=== PATIENT | female | born 1930 | race Caucasian/White ===

== ENCOUNTER 2016-09-11 15:19 | Emergency (ER) | payer MEDICARE ==
[~2016-09-11 15:19] MED LIST: AMITRIPTYLINE H50 M1 PO; AMOXICILLIN/CLA1 TA1 PO; CALCI-MIX500 M1 PO; CARDI-OMEGA1000 MG PO; CRANBERRY1 POW; GINKGO4 PO; NATURE'S BLEND400 IU PO; PHENERGAN 25 TA25 MG PO; PRILOSEC 20MG20 MG PO; PRINIVIL10 MG PO; PRINZIDE 25 MG-1 TAB PO; ZOFRAN ODT4 MG PO
[2016-09-11 15:21] VITALS: BP 120/88; PULSE 70; TEMP 97.1
== END 2016-09-11 15:27 | disposition home or self-care (01) ==
LOC: COL.ER 15:19
DX: Z48.02 Encounter for removal of sutures (principal)

== ENCOUNTER 2017-01-23 11:00 | Outpatient (RCR) | payer MEDICARE ==
[2017-01-18 07:50] VITALS: BP 139/56; PULSE 55; TEMP 97.1
[2017-01-19 01:16] LABS: HAPTOGLOBIN 2 mg/dL (36-195)
[2017-01-19 14:18] LABS: ALBUMIN FRACTION 4.1 g/dL (2.6-4.5); ALBUMIN PERCENTAGE 59.4 % (48.7-61.8); ALPHA 1 FRACTION 0.3 g/dL (0.3-0.5); ALPHA 1 PERCENTAGE 3.6 % (3.4-8.3); ALPHA 2 FRACTION 0.7 g/dL (0.6-1.2); ALPHA 2 PERCENTAGE 9.4 % (8.4-17.5); BETA 1 FRACTION 0.4 g/dL (0.4-0.6); BETA 1 PERCENTAGE 5.7 % (5.4-8.9); BETA 2 FRACTION 0.3 g/dL (0.2-0.5); BETA 2 PERCENTAGE 4.5 % (3.8-7.7); GAMMA FRACTION 1.2 g/dL (0.4-1.7); GAMMA PERCENTAGE 17.4 % (8.1-23.0); SERUM PROTEIN TOTAL 6.9 g/dL (6.0-7.6)
[2017-01-20 15:51] LABS: KAPPA FREE LIGHT CHAIN-SERUM 20.4 mg/dL (()); KAPPA LAMBDA RATIO 5.44 (())
[2017-01-23] VITALS (8 sets, daily range): BP systolic 126–153; BP diastolic 60–71; PULSE 72–77; TEMP 97.1–98.4
== END 2017-01-23 18:41 | disposition home or self-care (01) ==
LOC: EUO 11:00
PROVIDERS: Family Medicine
DX: D72.829 Elevated white blood cell count, unspecified (principal)
CPT/HCPCS: J7050; P9040

== ENCOUNTER 2017-02-03 16:24 | Outpatient (RCR) | payer MEDICARE ==
[2017-02-03] VITALS (7 sets, daily range): BP systolic 121–165; BP diastolic 65–106; PULSE 73–80; TEMP 97.7–98.2
[2017-02-04 01:30] VITALS: BP 164/57; PULSE 59; TEMP 98.1
[2017-02-04 02:24] VITALS: BP 164/57; PULSE 59
[2017-02-04 02:55] VITALS: BP 176/67; PULSE 72; TEMP 97.9
== END 2017-02-04 08:45 | disposition home or self-care (01) ==
LOC: EUO 16:24 → MEDICAL 16:25 → EUO 02-04 08:45
PROVIDERS: Family Medicine
DX: D72.829 Elevated white blood cell count, unspecified (principal)
CPT/HCPCS: OP; P9040

== ENCOUNTER 2017-05-13 10:04 | Emergency (ER) | payer MEDICARE ==
[~2017-05-13] VITALS: Ht 160 cm; Wt 62.7 kg
[2017-05-13] MEDS ORDERED: PREDNISONE20 MG PO (11:06)
[2017-05-13 11:07] LABS: MEAN CELL VOLUME 97 fl (80.0-100.0); MEAN CORPUSCULAR HGB CONC 32 g/dl (33.0-37.0); PLATELET COUNT 166 K/mm3 (130-400); RED BLOOD COUNT 3.53 M/mm3 (4.10-5.30); REDCELL DISTRIBUTION WIDTH-CV 14.4 % (11.5-14.5)
[2017-05-13] MEDS ORDERED: AMITRIPTYLINE H50 M1 PO (11:07)
[2017-05-13 11:08] LABS: HEMATOCRIT 34.3 % (37.0-47.0); MEAN CORPUSCULAR HEMOGLOBIN 31 pg (27.0-31.0); WHITE BLOOD COUNT 20.1 K/mm3 (4.8-10.8)
[2017-05-13] MEDS ORDERED: CEPHALEXIN500 M1 PO (11:08)
[2017-05-13 11:09] LABS: ADD PATHOLOGY DIFF REVIEW NO
[2017-05-13] MEDS ORDERED: ZOFRAN8 MG PO (11:09)
[2017-05-13] MEDS ORDERED: IMBRUVICA PO (11:10)
[2017-05-13] MEDS ORDERED: FOLIC ACID 11 MG/TA1 PO (11:11)
[2017-05-13] MEDS ORDERED: VITAMIN C500 MG PO (11:12)
[2017-05-13] MEDS ORDERED: MASON NATURAL2000 IU PO (11:12)
[2017-05-13] MEDS ORDERED: NATURAL IRON65 MG PO (11:13)
[2017-05-13] MEDS ORDERED: CRANBERRY FRUI405 MG PO (11:13)
[2017-05-13] MEDS ORDERED: VITAMINE200 PO (11:14)
[2017-05-13] MEDS ORDERED: PROBIOTIC FORMU1 CAP PO (11:14)
[2017-05-13] MEDS ORDERED: OMEGA-3 1000 MG1 CAP PO (11:14)
[2017-05-13] MEDS ORDERED: PHENERGAN 25 TA25 MG PO (11:15)
[2017-05-13 11:20] LABS: ADJUSTED CALCIUM 10.1 mg/dL (8.4-10.2); ALBUMIN 2.8 gm/dL (3.5-5.0); BILIRUBIN,TOTAL 0.5 mg/dL (0.0-1.0); C-REACTIVE PROTEIN 3.2 mg/dL (0.0-0.9); CALCIUM 9.1 mg/dL (8.4-10.2); CREATININE, serum 1.43 mg/dL (0.52-1.25); TOTAL PROTEIN 5.6 gm/dL (6.4-8.2); URIC ACID 5.1 mg/dL (2.5-6.2)
[2017-05-13 11:57] LABS: BAND 25 % (0-10); MYELOCYTE 1 % (0-0); NEUTROPHILS 14 % (42.0-75.2); TOTAL CELLS COUNTED 100
[2017-05-13 11:58] LABS: HYPOCHROMIA 2+; OVALOCYTES 1+; PLATELET ESTIMATE NORMAL (NORMAL)
[2017-05-13] MEDS ORDERED: DOXYCYCLINE 10100 MG PO (12:13)
[2017-05-13 12:24] VITALS: BP 128/72; PULSE 76; TEMP 97.4
== END 2017-05-13 12:38 | disposition home or self-care (01) ==
LOC: COL.ER 10:04
PROVIDERS: Physician Assistant
DX: L02.413 Cutaneous abscess of right upper limb (principal); I10 Essential (primary) hypertension; C91.10 Chronic lymphocytic leukemia of B-cell type not having achieved remission